=== PATIENT | male | born 1995 | race African-American/Black ===

== ENCOUNTER 2018-11-06 21:25 | Emergency (ER) | payer MEDICAID ==
[~2018-11-06] VITALS: Ht 182.9 cm; Wt 123.8 kg
[2018-11-06 21:53] VITALS: BP 143/79
== END 2018-11-07 01:56 | disposition left against medical advice (07) ==
LOC: ER 21:25
DX: Z53.21 Procedure and treatment not carried out due to patient leaving prior to being seen by health care provider (principal)

== ENCOUNTER 2018-11-07 02:20 | Emergency (ER) | payer MEDICAID ==
[~2018-11-07] VITALS: Ht 182.9 cm; Wt 123.8 kg
[2018-11-07] MEDS ORDERED: ACETAMINOPHEN 325MG TABLET PO ONE (06:00)
[2018-11-07 06:45] VITALS: BP 131/65
== END 2018-11-07 06:47 | disposition home or self-care (01) ==
LOC: ER 02:20
DX: S09.8XXA Other specified injuries of head, initial encounter (principal); F17.210 Nicotine dependence, cigarettes, uncomplicated; F12.10 Cannabis abuse, uncomplicated; X83.8XXA Intentional self-harm by other specified means, initial encounter; Y93.89 Activity, other specified; Y92.018 Other place in single-family (private) house as the place of occurrence of the external cause
CPT/HCPCS: 70450; 99284; Z7610

== ENCOUNTER 2018-11-20 10:43 | Emergency (ER) | payer MEDICAID ==
[~2018-11-20] VITALS: Ht 180.3 cm; Wt 113.0 kg
[2018-11-20] MEDS ORDERED: SODIUM CHLORIDE 0.9% 1,000 ML IV ONE (14:10)
[2018-11-20] MEDS ORDERED: LORAZEPAM 0.5MG TABLET PO ONE (14:15)
[2018-11-20 14:57] LABS: CHLORIDE 106 mEq/L (98-107)
[2018-11-20 15:00] LABS: BASOPHILS % 0.8 % (0.0-2.0); EOSINOPHILS % 0.6 % (0.0-5.0); HEMATOCRIT. 40.5 % (42.0-52.0); HEMOGLOBIN. 13.5 g/dL (14.0-18.0); LYMPHOCYTES % 23.1 % (20.0-50.0); MEAN CORPUSCULAR VOLUME 86.7 fL (80.0-94.0); MEAN PLATELET VOLUME 8.4 fl (7.4-10.4); MONOCYTES % 6.9 % (2.0-8.0); NEUTROPHILS % 68.6 % (40.0-76.0); PLATELET 209 x1000/uL (130-400); RED BLOOD CELL COUNT 4.66 mill/uL (4.7-6.1); RED CELL DISTRIBUTION WIDTH 14.2 % (11.6-14.6)
[2018-11-20 16:35] VITALS: BP 125/74
== END 2018-11-20 16:37 | disposition home or self-care (01) ==
LOC: ER 10:43
DX: R07.89 Other chest pain (principal); F12.10 Cannabis abuse, uncomplicated
CPT/HCPCS: 36415; 71045; 80053; 85025; 93005; 99284; J7030

== ENCOUNTER 2018-11-27 07:52 | Emergency (ER) | payer MEDICAID ==
[~2018-11-27] VITALS: Ht 172.7 cm; Wt 125.0 kg
[2018-11-27] MEDS ORDERED: KETOROLAC 30MG/ML VIAL IV STA (08:54)
[2018-11-27] MEDS ORDERED: SODIUM CHLORIDE 0.9% 1,000 ML IV ONE (08:54)
[2018-11-27 09:11] LABS: EOSINOPHILS % 3.7 % (0.0-5.0); HEMATOCRIT. 41.5 % (42.0-52.0); HEMOGLOBIN. 13.8 g/dL (14.0-18.0); LYMPHOCYTES % 34.7 % (20.0-50.0); MEAN CORPUSCULAR HEMOGLOBIN 28.7 pg (28.0-32.0); MEAN PLATELET VOLUME 8.3 fl (7.4-10.4); MONOCYTES % 8.6 % (2.0-8.0); PLATELET 231 x1000/uL (130-400); RED BLOOD CELL COUNT 4.83 mill/uL (4.7-6.1); RED CELL DISTRIBUTION WIDTH 14.2 % (11.6-14.6)
[2018-11-27 09:19] LABS: CHLORIDE 108 mEq/L (98-107)
[2018-11-27 10:15] VITALS: BP 148/82
== END 2018-11-27 10:26 | disposition home or self-care (01) ==
LOC: ER 07:52
DX: R00.2 Palpitations (principal); F12.10 Cannabis abuse, uncomplicated; F17.200 Nicotine dependence, unspecified, uncomplicated
CPT/HCPCS: 36415; 71045; 80053; 84484; 85025; 93005; 96374; 99284; J1885; J7030

== ENCOUNTER 2019-01-11 17:51 | Emergency (ER) | payer MEDICAID ==
[~2019-01-11] VITALS: Ht 182.9 cm; Wt 131.9 kg
[2019-01-11] MEDS ORDERED: SODIUM CHLORIDE 0.9% 1,000 ML IV ONE (21:23)
[2019-01-11] MEDS ORDERED: ONDANSETRON HCL 4MG/2ML INJ IV STA (21:23)
[2019-01-11] MEDS ORDERED: KETOROLAC 30MG/ML VIAL IV STA (21:23)
[2019-01-11 21:56] LABS: BASOPHILS % 1.1 % (0.0-2.0); EOSINOPHILS % 1.7 % (0.0-5.0); HEMATOCRIT. 38.9 % (42.0-52.0); LYMPHOCYTES % 35.7 % (20.0-50.0); MEAN CORPUSCULAR HEMOGLOBIN 29.1 pg (28.0-32.0); MEAN CORPUSCULAR VOLUME 87.1 fL (80.0-94.0); MEAN PLATELET VOLUME 8.7 fl (7.4-10.4); MONOCYTES % 9.1 % (2.0-8.0); NEUTROPHILS % 52.4 % (40.0-76.0); PLATELET 201 x1000/uL (130-400); RED BLOOD CELL COUNT 4.47 mill/uL (4.7-6.1); RED CELL DISTRIBUTION WIDTH 14.6 % (11.6-14.6)
[2019-01-11 21:59] LABS: CHLORIDE 106 mEq/L (98-107)
[2019-01-12 00:07] VITALS: BP 121/65
== END 2019-01-12 01:06 | disposition home or self-care (01) ==
LOC: ER 18:17
DX: R51 Headache (principal); R11.0 Nausea; H53.149 Visual discomfort, unspecified; F17.200 Nicotine dependence, unspecified, uncomplicated; F17.210 Nicotine dependence, cigarettes, uncomplicated
CPT/HCPCS: 36415; 70450; 80053; 85025; 85651; 96374; 96375; 99284; 99406; J1885; J2405; J7030; Z7610

== ENCOUNTER 2019-01-31 05:39 | Emergency (ER) | payer MEDICAID ==
[~2019-01-31] VITALS: Ht 182.9 cm; Wt 131.4 kg
[2019-01-31] MEDS ORDERED: ACETAMINOPHEN 500MG TABLET PO ONE (07:30)
[2019-01-31 07:38] VITALS: BP 134/73
== END 2019-01-31 07:40 | disposition home or self-care (01) ==
LOC: ER 05:39
DX: L73.9 Follicular disorder, unspecified (principal); G47.63 Sleep related bruxism; G44.209 Tension-type headache, unspecified, not intractable; F17.200 Nicotine dependence, unspecified, uncomplicated
CPT/HCPCS: 99283

== ENCOUNTER 2019-05-24 09:23 | Emergency (ER) | payer MEDICAID ==
[~2019-05-24] VITALS: Ht 182.9 cm; Wt 141.0 kg
[2019-05-24 11:20] LABS: CHLORIDE 107 mEq/L (98-107)
[2019-05-24 11:23] LABS: BASOPHILS % 0.5 % (0.0-2.0); EOSINOPHILS % 1.4 % (0.0-5.0); HEMOGLOBIN. 13.9 g/dL (14.0-18.0); LYMPHOCYTES % 34.5 % (20.0-50.0); MEAN CORPUSCULAR HEMOGLOBIN 28.7 pg (28.0-32.0); MEAN CORPUSCULAR VOLUME 86.5 fL (80.0-94.0); MEAN PLATELET VOLUME 8.4 fl (7.4-10.4); MONOCYTES % 9.3 % (2.0-8.0); NEUTROPHILS % 54.3 % (40.0-76.0); PLATELET 213 x1000/uL (130-400); RED BLOOD CELL COUNT 4.86 mill/uL (4.7-6.1); RED CELL DISTRIBUTION WIDTH 13.8 % (11.6-14.6)
[2019-05-24] MEDS ORDERED: IOHEXOL-300 100 ML BOTTLE ONE (11:52)
[2019-05-24 14:06] VITALS: BP 122/68
== END 2019-05-24 14:08 | disposition home or self-care (01) ==
LOC: ER 09:23
DX: M25.522 Pain in left elbow (principal); M25.512 Pain in left shoulder; M79.641 Pain in right hand; R10.30 Lower abdominal pain, unspecified; F17.200 Nicotine dependence, unspecified, uncomplicated
CPT/HCPCS: 36415; 73030; 73080; 73130; 74177; 80048; 85025; 99284; Q9967; Z7610; A4565

== ENCOUNTER 2021-02-24 01:28 | Emergency (ER) | payer MEDICAID ==
[~2021-02-24] VITALS: Ht 180.3 cm; Wt 130.2 kg
[2021-02-24 01:56] VITALS: BP 149/74
[2021-02-24] MEDS ORDERED: AMOX-424 MT (02:29)
[2021-02-24] MEDS ORDERED: BACITRACIN ZINC OINT UDPKT TOP ONE (02:30)
[2021-02-24] MEDS ORDERED: TETANUS AND DIPHTHERIA TOX/PF 0.5ML SYR (ADULT) IM ONE (02:30)
[2021-02-24] MEDS ORDERED: TETANUS, DIPHTHERIA, PERTUSSIS VAC/PF 0.5ML (>7YR OLD) IM ONE (03:00)
== END 2021-02-24 03:37 | disposition home or self-care (01) ==
LOC: ER 01:28
DX: S61.451A Open bite of right hand, initial encounter (principal); L03.113 Cellulitis of right upper limb; W54.0XXA Bitten by dog, initial encounter; Y93.89 Activity, other specified; Y92.89 Other specified places as the place of occurrence of the external cause
CPT/HCPCS: 90471; 90715; 99283

== ENCOUNTER 2021-05-10 20:00 | Emergency (ER) | payer MEDICAID, OTHER ==
[~2021-05-10] VITALS: Ht 182.9 cm; Wt 126.1 kg
[~2021-05-10 20:00] MED LIST: AMOX-424 MT
[2021-05-11 01:40] LABS: BASOPHILS % 0.5 % (0.0-2.0); EOSINOPHILS % 1.6 % (0.0-5.0); HEMATOCRIT. 41.1 % (42.0-52.0); HEMOGLOBIN. 13.7 g/dL (14.0-18.0); LYMPHOCYTES % 36.6 % (20.0-50.0); MEAN CORPUSCULAR HEMOGLOBIN 28.3 pg (28.0-32.0); MEAN CORPUSCULAR VOLUME 84.7 fL (80.0-94.0); MEAN PLATELET VOLUME 8.3 fl (7.4-10.4); MONOCYTES % 7.7 % (2.0-8.0); NEUTROPHILS % 53.6 % (40.0-76.0); PLATELET 249 x1000/uL (130-400); RED BLOOD CELL COUNT 4.84 mill/uL (4.7-6.1); RED CELL DISTRIBUTION WIDTH 15.2 % (11.6-14.6)
[2021-05-11 01:48] LABS: CHLORIDE 110 mEq/L (98-107)
[2021-05-11 02:15] VITALS: BP 128/75
== END 2021-05-11 02:20 | disposition home or self-care (01) ==
LOC: ER 20:00
DX: K62.5 Hemorrhage of anus and rectum (principal); D64.9 Anemia, unspecified
CPT/HCPCS: 36415; 80053; 85025; 86850; 86900; 99283